=== PATIENT | male | born 1975 | race Caucasian/White ===

== ENCOUNTER 2019-04-17 13:49 | Emergency (ER) | payer BC, SELFPAY ==
[2019-04-17 14:03] VITALS: BP 119/71; PULSE 96; RESP 16; TEMP 36.6; O2SAT 100
--- NOTE | 2019-04-17 14:11 | ED.DENTAL ---
HPI - Dental/Oral General Chief complaint: Dental/Oral Stated complaint: Tooth Ache History of Present Illness HPI Narrative: This is a 43-year-old male comes in complaining of dental pain this been going on for the past 3 days patient states that his pain right now is 8 out of 10 patient states he has been taking ibuprofen for the pain. Patient states his been having a hard time finding a dentist Related Data Allergies Allergy/AdvReac Type Severity Reaction Status Date / Time No Known Allergies Allergy Unverified 04/17/19 14:07 Review of Systems Review of Systems: Narrative: CONSTITUTIONAL: Denies fever, chills, or sweats. EYES: Denies visual changes, redness, or discharge. ENT: Denies rhinorrhea, congestion, sore throat, or otalgia. Dental pain CARDIOVASCULAR:Denies chest pain, palpitations, or edema. RESPIRATORY: Denies cough or dyspnea. GASTROINTESTINAL: Denies abdominal pain, nausea, vomiting, or diarrhea. GENITOURINARY: Denies dysuria or hematuria. SKIN:[Denies rash or itching. MUSCULOSKELETAL:Denies back pain, joint pain, or myalgia. NEUROLOGIC: Denies headache, numbness, or weakness. PSYCHIATRIC:Denies anxiety or depression PMFSH Social History Social History Gender identity (if verbalized by the patient): Male Comments At time as signature, I have reviewed and agree with nursing past medical, social, surgical and family history. Please see nursing chart for further information. There is no relevant family history pertinent to the presenting complaint. Exam Narrative: Exam Narrative: GENERAL:Well-appearing, well-nourished, and in no acute distress. HEAD:Normocephalic, atraumatic. EYES: PERRLA and EOMI. ENT: Nares clear, no rhinorrhea or epistaxis. Mucous membranes moist. Left-sided jaw swelling noted left-sided lower wisdom tooth enlarged gums tooth prior to wisdom tooth missing inner jaw swelling noted NECK: Supple. CHEST: Clear to auscultation. No respiratory distress. HEART: Regular rate and rhythm. No murmur heard. Normal peripheral pulses. ABDOMEN: Soft, nontender, nondistended, normal active bowel sounds. EXTREMITIES: Normal range of motion. No edema. SKIN: Warm, dry, no rash. NEURO: No focal deficits. Alert and oriented x3. Course Vital Signs Vital signs: Vital Signs Temperature 97.8 F 04/17/19 14:03 Pulse Rate 96 04/17/19 14:03 Respiratory Rate 16 04/17/19 14:03 Blood Pressure 119/71 04/17/19 14:03 Pulse Oximetry 100 04/17/19 14:03 Temperature 97.8 F 04/17/19 14:03 Pulse Rate 96 04/17/19 14:03 Respiratory Rate 16 04/17/19 14:03 Blood Pressure 119/71 04/17/19 14:03 Pulse Oximetry 100 04/17/19 14:03 Discharge Plan Discharge Clinical Impression: Dental abscess, Dental caries, Toothache Patient Disposition: Home, Self-Care Condition: Stable Instructions: Antibiotic Form, Dental Abscess (ED), Toothache (ED) Additional Instructions: Antibiotic as directed Avoid temperature extremes May apply heat or ice to the face Gentle brushing and flossing Alternate tylenol and ibuprofen as needed for pain Follow-up with the dentist as soon as possible--see the list provided Discussed with patient about following up with a dentist as soon as possible and the importance Prescriptions: New amoxicillin 500 mg capsule 500 mg PO Q8H 10 Days Qty: 30 RF: 0 prednisone 10 mg tablet 40 mg PO ONCE Qty: 4 RF: 0 chlorhexidine gluconate [Peridex] 0.12 % mouthwash 15 ml BUCCAL BID Qty: 118 RF: 0 ibuprofen 800 mg tablet 800 mg PO TID PRN (Reason: pain) Qty: 20 RF: 0 Follow-up/Referrals: PHYSICIAN,COILER [Primary Care Provider] - Stand Alone Forms: Work/School Release IP Time of Disposition: 14:24
== END 2019-04-17 14:30 | disposition home or self-care (01) ==
PROVIDERS: Emergency Provider Nurse Practitioner Family
DX: K04.7 Periapical abscess without sinus (principal); K02.9 Dental caries, unspecified; K08.89 Other specified disorders of teeth and supporting structures
CPT/HCPCS: 99203; G0463